=== PATIENT | female | born 1970 | race Caucasian/White ===

== ENCOUNTER 2018-03-10 03:08 | Emergency (ER) | payer SELFPAY ==
[~2018-03-10] VITALS: Ht 147.3 cm; Wt 59.8 kg
[2018-03-10] MEDS ORDERED: EFFEXOR37.5 MG PO (03:31)
[2018-03-10] MEDS ORDERED: WELLBUTRIN SR150 MG PO (03:31)
[2018-03-10] MEDS ORDERED: HYDROXYZ PAM25 MG PO (03:32)
[2018-03-10] MEDS ORDERED: LEXAPRO10 MG PO (03:33)
[2018-03-10] MEDS ORDERED: SEROQUEL100 MG PO (03:34)
[2018-03-10] MEDS ORDERED: BACTRIM DS1 TAB PO (04:27)
[2018-03-10] MEDS ORDERED: LORTAB 1010 MG PO (04:27)
[2018-03-10 04:43] VITALS: BP 136/72
== END 2018-03-10 04:51 | disposition home or self-care (01) | DRG 747 ==
LOC: ED 03:08
PROC: 0U9MXZZ Drainage of Vulva, External Approach (ICD-10-PCS; principal; 2018-03-10)
DX: N76.4 Abscess of vulva (principal); E11.9 Type 2 diabetes mellitus without complications; F31.9 Bipolar disorder, unspecified; B95.61 Methicillin susceptible Staphylococcus aureus infection as the cause of diseases classified elsewhere

== ENCOUNTER 2018-03-11 05:49 | Emergency (ER) | payer SELFPAY ==
[~2018-03-11] VITALS: Ht 147.3 cm; Wt 60.8 kg
[~2018-03-11 05:49] MED LIST: BACTRIM DS1 TAB PO; EFFEXOR37.5 MG PO; HYDROXYZ PAM25 MG PO; LEXAPRO10 MG PO; LORTAB 1010 MG PO; SEROQUEL100 MG PO; WELLBUTRIN SR150 MG PO
[2018-03-11 06:26] VITALS: BP 141/79
== END 2018-03-11 06:30 | disposition home or self-care (01) | DRG 759 ==
LOC: ED 05:49
DX: N76.4 Abscess of vulva (principal); B95.61 Methicillin susceptible Staphylococcus aureus infection as the cause of diseases classified elsewhere